=== PATIENT | female | born 1955 | race Caucasian/White ===

== ENCOUNTER 2018-08-05 07:50 | Observation (INO) | payer MEDICARE ==
[~2018-08-05] VITALS: Ht 162.6 cm; Wt 58.7 kg
[2018-08-05 08:38] LABS: BASOPHILS % 0.5 % (0.0-1.0); EOSINOPHILS # (AUTO) 0.3 (0.0-0.4); EOSINOPHILS % 3.2 % (0.0-6.0); HEMATOCRIT 38.9 % (34.2-44.1); HEMOGLOBIN 13.1 g/dL (12.0-16.0); LYMPHOCYTES # (AUTO) 1.5 (1.0-3.2); LYMPHOCYTES % 18.5 % (18.0-39.1); MEAN CORPUSCULAR HEMOGLOBIN 33.6 pg (28-32); MEAN CORPUSCULAR HGB CONC 33.7 g/dL (31-35); MEAN CORPUSCULAR VOLUME 99.7 fL (81-99); MONOCYTES # (AUTO) 0.6 (0.2-0.8); MONOCYTES % 7.5 % (4.4-11.3); NEUTROPHILS # (AUTO) 5.6 (2.1-6.9); NEUTROPHILS % 70.1 % (38.7-80.0); PLATELET COUNT 210 x10e3/uL (140-360); RED CELL DISTRIBUTION WIDTH 12.3 % (11.7-14.4)
[2018-08-05 08:55] LABS: INR 0.88; PROTHROMBIN TIME 12.8 seconds (11.9-14.5)
[2018-08-05 08:56] LABS: PARTIAL THROMBOPLASTIN TIME 25.5 seconds (23.8-35.5)
[2018-08-05] MEDS ORDERED: MIDAZOLAM HCL 2 MG/2 ML VIAL ONE (09:11)
[2018-08-05] MEDS ORDERED: FENTANYL CITRATE/PF 100MCG/2 ML INJ ONE ×2 (09:11→14:44)
[2018-08-05] MEDS ORDERED: LIDOCAINE HCL 1% LOCAL INJ 20 ML VIAL ONE ×2 (09:39→14:23)
--- NOTE | 2018-08-05 12:41 | Diagnostic Imaging Report ---
EXAMINATION: CHEST XRAY POST PROCEDURE INDICATION: Post lung biopsy COMPARISON: CT guided lung biopsy 08/05/2018. FINDINGS: TUBES and LINES: None. LUNGS AND PLEURA: Opacity in the left upper lung corresponding to known lung nodule and perilesional hemorrhage seen on same day CT. Emphysematous changes of the lungs. There is a small to moderate left sided pneumothorax measuring up to 1.3 cm. No evidence of mediastinal shift. Right sided skin fold. No evidence of pneumonia or pulmonary edema. HEART AND MEDIASTINUM: The cardiomediastinal silhouette is unremarkable. BONES AND SOFT TISSUES: No acute osseous lesion. Soft tissues are unremarkable. UPPER ABDOMEN: No free air under the diaphragm. IMPRESSION: Emphysematous changes of the lungs with opacity in the left upper lung corresponding to lung nodule and perilesional hemorrhage seen on same day chest CT. A 1.3 cm left sided pneumothorax. No evidence of mediastinal shift. Signed by: Dr. Lyudmila Tapia MD on 08/05/2018 12:38 PM
--- NOTE | 2018-08-05 14:00 | Diagnostic Imaging Report ---
EXAMINATION: CHEST XRAY POST PROCEDURE INDICATION: Post lung biopsy COMPARISON: CT guided lung biopsy 08/05/2018 and chest radiograph post procedurally 08/05/18 at 1219 PM. FINDINGS: TUBES and LINES: None. LUNGS AND PLEURA: Opacity in the left upper lung corresponding to known lung nodule and perilesional hemorrhage seen on same day CT. Emphysematous changes of the lungs. There is an enlarging moderate left sided pneumothorax measuring up to 2.1 cm, previously 1.3 cm. No evidence of mediastinal shift. Right sided skin fold. No evidence of pneumonia or pulmonary edema. HEART AND MEDIASTINUM: The cardiomediastinal silhouette is unremarkable. BONES AND SOFT TISSUES: No acute osseous lesion. Soft tissues are unremarkable. UPPER ABDOMEN: No free air under the diaphragm. IMPRESSION: Emphysematous changes of the lungs with opacity in the left upper lung corresponding to lung nodule and perilesional hemorrhage seen on same day chest CT. Enlarging 2.1 cm left sided pneumothorax. No evidence of mediastinal shift. Signed by: Dr. Lyudmila Tapia MD on 08/05/2018 1:57 PM
--- NOTE | 2018-08-05 14:23 | Diagnostic Imaging Report ---
CT Guided Left Upper Lobe Pulmonary Nodule Biopsy Consent: The nature of the procedure, including its risks, benefits and alternatives was explained to the patient who understood and gave consent. Of note, given the patient's bullous emphysema and requirement of oxygen at baseline, risk for pneumothorax was very high (estimated at greater than 90 percent) with potential need for chest tube, admission, and possible intubation. The risks, benefits, and alternatives were explained to the patient and family. The patient decided to proceed with the procedure. Respiratory staff is present as standby and Dr. Karimi is aware that the patient may need to be admitted post procedurally. Operators: Lyudmila Tapia MD ANESTHESIA: Intravenous conscious sedation was administered by radiology nursing. Continuous hemodynamic and respiratory monitoring was performed, including the use of pulse oximetry. Sedation start time: 1010AM; Sedation end time: 1045AM Total sedation time: 35 minutes Medications: 10 cc of 1% subcutaneous lidocaine Fentanyl and Versed per nursing administration records TECHNIQUE: The patient was placed in the supine position. Scans were obtained through the upper lung which demonstrated a left upper lobe pulmonary nodule and severe bullous emphysematous changes of the lungs. A clear path to the lesion was identified. The skin of the left anterior chest was marked, prepped, draped and anesthetized with 1% lidocaine. With CT guidance, a 19-gauge needle was inserted percutaneously into the left upper lobe nodule with a single pleural puncture. Due to risk for pneumothorax, no fine needle aspirates were obtained. Subsequently with a 20-gauge core biopsy device, four core biopsies were obtained with CT guidance. Samples were provided to Pathology who confirmed sample adequacy. Repeat CT demonstrated a left perilesional hemorrhage without visible pneumothorax. The patient's oxygen saturations were stable. A blood patch was performed and the introducer needle was removed. Sterile bandage was placed and the patient was immediately positioned in prone position on the stretcher for post procedural recovery. CONDITION/COMPLICATIONS: Moderate perilesional left upper lobe pulmonary hemorrhage. Patient is clinically stable and oxygenating well. No visible pneumothorax. IMPRESSION: Core biopsy of left upper lobe pulmonary nodule. Moderate perilesional hemorrhage with clinical stability at the termination of the procedure. Patient of note is at very high risk for pneumothorax, and will be monitored in prone position x 4 hours with follow-up chest radiographs. Signed by: Dr. Lyudmila Tapia MD on 08/05/2018 2:20 PM
--- OUTSIDE RECORDS SUMMARY | 2018-08-05 15:59 | XMS REPORT ---
[facility] Address [facility] Phone Unavailable Care Team Providers Care Analog Ic Design Engineer Name Role Phone IOANA KARIMI Unavailable Unavailable Problems This patient has no known problems. Allergies, Adverse Reactions, Alerts This patient has no known allergies or adverse reactions. Medications This patient has no known medications. Results Test Description Test Time Test Comments Text Results Atomic Results Result Comments CHEST XRAY POST PROCEDURE 2018-08-05 13:50:00 [place] [address] Patient Name: REVA WOODARD MR #: [id number] : 1955 Age/Sex: 63/F Req #: [id number] Adm Physician: Ordered by: KELLEY TAPIA MD Report #: [id number] Location: CT Room/Bed: Procedure: [id number] DX/CHEST XRAY POST PROCEDURE Exam Date: Exam Time: REPORT STATUS: Signed EXAMINATION: CHEST XRAY POST PROCEDURE INDICATION: Post lung biopsy COMPARISON: CT guided lung biopsy 08/05/2018 and chest radiograph post procedurally 08/05/18 at 1219 PM. FINDINGS: TUBES and LINES: None. LUNGS AND PLEURA: Opacity in the left upper lung corresponding to known lung nodule and perilesional hemorrhage seen on same day CT. Emphysematous changes of the lungs. There is an enlarging moderate left sided pneumothorax measuring up to 2.1 cm, previously 1.3 cm. No evidence of mediastinal shift. Right sided skin fold. No evidence of pneumonia or pulmonary edema. HEART AND MEDIASTINUM: The cardiomediastinal silhouette is unremarkable. BONES AND SOFT TISSUES: No acute osseous lesion. Soft tissues are unremarkable. UPPER ABDOMEN: No free air under the diaphragm. IMPRESSION: Emphysematous changes of the lungs with opacity in the left upper lung corresponding to lung nodule and perilesional hemorrhage seen on same day chest CT. Enlarging 2.1 cm left sided pneumothorax. No evidence of mediastinal shift. Signed by: Dr. Kelley Tapia MD on 08/05/2018 1:57 PM Dictated By: KELLEY TAPIA MD [id number] Transcribed By: TJ on 08/05/18 [id number] COPY TO: KELLEY TAPIA MD CHEST XRAY POST PROCEDURE 2018-08-05 12:34:00 [place] [address] Patient Name: REVA WOODARD MR #: [id number] : 1955 Age/Sex: 63/F Req #: [id number] Adm Physician: Ordered by: KELLEY TAPIA MD Report #: [id number] Location: CT Room/Bed: Procedure: [id number] DX/CHEST XRAY POST PROCEDURE Exam Date: Exam Time: REPORT STATUS: Signed EXAMINATION: CHEST XRAY POST PROCEDURE INDICATION: Post lung biopsy COMPARISON: CT guided lung biopsy 08/05/2018. FINDINGS: TUBES and LINES: None. LUNGS AND PLEURA: Opacity in the left upper lung corresponding to known lung nodule and perilesional hemorrhage seen on same day CT. Emphysematous changes of the lungs. There is a small to moderate left sided pneumothorax measuring up to 1.3 cm. No evidence of mediastinal shift. Right sided skin fold. No evidence of pneumonia or pulmonary edema. HEART AND MEDIASTINUM: The cardiomediastinal silhouette is unremarkable. BONES AND SOFT TISSUES: No acute osseous lesion. Soft tissues are unremarkable. UPPER ABDOMEN: No free air under the diaphragm. IMPRESSION: Emphysematous changes of the lungs with opacity in the left upper lung corresponding to lung nodule and perilesional hemorrhage seen on same day chest CT. A 1.3 cm left sided pneumothorax. No evidence of mediastinal shift. Signed by: Dr. Kelley Tapia MD on 08/05/2018 12:38 PM Dictated By: KELLEY TAPIA MD 1238 Transcribed By: TJ on 08/05/18 1238 COPY TO: KELLEY TAPIA MD MOD SEDATE ADD 15 MIN<5YRS 2018-08-05 11:34:00 [place] [address] Patient Name: REVA WOODARD MR #: [id number] : 1955 Age/Sex: 63/F Req #: [id number] Adm Physician: Ordered by: IOANA KARIMI MD Report #: [id number] Location: CT Room/Bed: Procedure: [id number] CT/MOD SEDATE ADD 15 MIN<5YRS Exam Date: 08/05/18 Exam Time: 1026 REPORT STATUS: Signed CT Guided Left Upper Lobe Pulmonary Nodule Biopsy Consent: The nature of the procedure, including its risks, benefits and alternatives was explained to the patient who understood and gave consent. Of note, given the patient's bullous emphysema and requirement of oxygen at baseline, risk for pneumothorax was very high (estimated at greater than 90 percent) with potential need for chest tube, admission, and possible intubation. The risks, benefits, and alternatives were explained to the patient and family. The patient decided to proceed with the procedure. Respiratory staff is present as standby and Dr. Karimi is aware that the patient may need to be admitted post procedurally. Operators: Kelley Tapia MD ANESTHESIA: Intravenous conscious sedation was administered by radiology nursing. Continuous hemodynamic and respiratory monitoring was performed, including the use of pulse oximetry. Sedation start time: 1010AM; Sedation end time: 1045AM Total sedation time: 35 minutes Medications: 10 cc of 1% subcutaneous lidocaine Fentanyl and Versed per nursing administration records TECHNIQUE: The patient was placed in the supine position. Scans were obtained through the upper lung which demonstrated a left upper lobe pulmonary nodule and severe bullous emphysematous changes of the lungs. A clear path to the lesion was identified. The skin of the left anterior chest was marked, prepped, draped and anesthetized with 1% lidocaine. With CT guidance, a 19- gauge needle was inserted percutaneously into the left upper lobe nodule with a single pleural puncture. Due to risk for pneumothorax, no fine needle aspirates were obtained. Subsequently with a 20-gauge core biopsy device, four core biopsies were obtained with CT guidance. Samples were provided to Pathology who confirmed sample adequacy. Repeat CT demonstrated a left perilesional hemorrhage without visible pneumothorax. The patient's oxygen saturations were stable. A blood patch was performed and the introducer needle was removed. Sterile bandage was placed and the patient was immediately positioned in prone position on the stretcher for post procedural recovery. CONDITION/COMPLICATIONS: Moderate perilesional left upper lobe pulmonary hemorrhage. Patient is clinically stable and oxygenating well. No visible pneumothorax. IMPRESSION: Core biopsy of left upper lobe pulmonary nodule. Moderate perilesional hemorrhage with clinical stability at the termination of the procedure. Patient of note is at very high risk for pneumothorax, and will be monitored in prone position x 4 hours with follow-up chest radiographs. Signed by: Dr. Kelley Tapia MD on 08/05/2018 2:20 PM Dictated By: KELLEY TAPIA MD 1420 Transcribed By: TJ on 08/05/18 1420 COPY TO: IOANA KARIMI MD, MD SEDATE INITIAL > 5 YRS 2018-08-05 11:34:00 [facility] [address] [place] [address] Patient Name: REVA WOODARD MR #: [id number] : 1955 Age/Sex: 63/F Req #: [id number] Adm Physician: Ordered by: IOANA KARIMI MD Report #: [id number] Location: CT Room/Bed: Procedure: [id number] CT/ SEDATE INITIAL > 5 YRS Exam Date: 08/05/18 Exam Time: 1010 REPORT STATUS: Signed CT Guided Left Upper Lobe Pulmonary Nodule Biopsy Consent: The nature of the procedure, including its risks, benefits and alternatives was explained to the patient who understood and gave consent. Of note, given the patient's bullous emphysema and requirement of oxygen at baseline, risk for pneumothorax was very high (estimated at greater than 90 percent) with potential need for chest tube, admission, and possible intubation. The risks, benefits, and alternatives were explained to the patient and family. The patient decided to proceed with the procedure. Respiratory staff is present as standby and Dr. Karimi is aware that the patient may need to be admitted post procedurally. Operators: Kelley Tapia MD ANESTHESIA: Intravenous conscious sedation was administered by radiology nursing. Continuous hemodynamic and respiratory monitoring was performed, including the use of pulse oximetry. Sedation start time: 1010AM; Sedation end time: 1045AM Total sedation time: 35 minutes Medications: 10 cc of 1% subcutaneous lidocaine Fentanyl and Versed per nursing administration records TECHNIQUE: The patient was placed in the supine position. Scans were obtained through the upper lung which demonstrated a left upper lobe pulmonary nodule and severe bullous emphysematous changes of the lungs. A clear path to the lesion was identified. The skin of the left anterior chest was marked, prepped, draped and anesthetized with 1% lidocaine. With CT guidance, a 19- gauge needle was inserted percutaneously into the left upper lobe nodule with a single pleural puncture. Due to risk for pneumothorax, no fine needle aspirates were obtained. Subsequently with a 20-gauge core biopsy device, four core biopsies were obtained with CT guidance. Samples were provided to Pathology who confirmed sample adequacy. Repeat CT demonstrated a left perilesional hemorrhage without visible pneumothorax. The patient's oxygen saturations were stable. A blood patch was performed and the introducer needle was removed. Sterile bandage was placed and the patient was immediately positioned in prone position on the stretcher for post procedural recovery. CONDITION/COMPLICATIONS: Moderate perilesional left upper lobe pulmonary hemorrhage. Patient is clinically stable and oxygenating well. No visible pneumothorax. IMPRESSION: Core biopsy of left upper lobe pulmonary nodule. Moderate perilesional hemorrhage with clinical stability at the termination of the procedure. Patient of note is at very high risk for pneumothorax, and will be monitored in prone position x 4 hours with follow-up chest radiographs. Signed by: Dr. Kelley Tapia MD on 08/05/2018 2:20 PM Dictated By: KELLEY TAPIA MD 1420 Transcribed By: TJ on 08/05/18 1420 COPY TO: IOANA KARIMI MD BIOPSY LUNG 2018-08-05 11:34:00 [place] [address] Patient Name: REVA WOODARD MR #: [id number] : 1955 Age/Sex: 63/F Req #: [id number] Adm Physician: Ordered by: IOANA KARIMI MD Report #: [id number] Location: CT Room/Bed: Procedure: [id number] IR/BIOPSY LUNG Exam Date: 08/05/18 Exam Time: 1000 REPORT STATUS: Signed CT Guided Left Upper Lobe Pulmonary Nodule Biopsy Consent : The nature of the procedure, including its risks, benefits and alternatives was explained to the patient who understood and gave consent. Of note, given the patient's bullous emphysema and requirement of oxygen at baseline, risk for pneumothorax was very high (estimated at greater than 90 percent) with potential need for chest tube, admission, and possible intubation. The risks, benefits, and alternatives were explained to the patient and family. The patient decided to proceed with the procedure. Respiratory staff is present as standby and Dr. Karimi is aware that the patient may need to be admitted post procedurally. Operators: Kelley Tapia MD ANESTHESIA: Intravenous conscious sedation was administered by radiology nursing. Continuous hemodynamic and respiratory monitoring was performed, including the use of pulse oximetry. Sedation start time: 1010AM; Sedation end time: 1045AM Total sedation time: 35 minutes Medications: 10 cc of 1% subcutaneous l idocaine Fentanyl and Versed per nursing administration records TECHNIQUE: The patient was placed in the supine position. Scans were obtained through the upper lung which demonstrated a left upper lobe pulmonary nodule and severe bullous emphysematous changes of the lungs. A clear path to the lesion was identified. The skin of the left anterior chest was marked, prepped, draped and anesthetized with 1% lidocaine. With CT guidance, a 19- gauge needle was inserted percutaneously into the left upper lobe nodule with a single pleural puncture. Due to risk for pneumothorax, no fine needle aspirates were obtained. Subsequently with a 20-gauge core biopsy device, four core biopsies were obtained with CT guidance. Samples were provided to Pathology who confirmed sample adequacy. Repeat CT demonstrated a left perilesional hemorrhage without visible pneumothorax. The patient's oxygen saturations were stable. A blood patch was performed and the introducer needle was removed. Sterile bandage was placed and the patient was immediately positioned in prone position on the stretcher for post procedural recovery. CONDITION/COMPLICATIONS: Moderate perilesional left upper lobe pulmonary hemorrhage. Patient is clinically stable and oxygenating well. No visible pneumothorax. IMPRESSION: Core biopsy of left upper lobe pulmonary nodule. Moderate perilesional hemorrhage with clinical stability at the termination of the procedure. Patient of note is at very high risk for pneumothorax, and will be monitored in prone position x 4 hours with follow-up chest radiographs. Signed by: Dr. Kelley Tapia MD on 08/05/2018 2:20 PM Dictated By: KELLEY TAPIA MD 142 Transcribed By: TJ on 08/05/181419 COPY TO: IOANA KARIMI MD CT GUIDED BIOPSY/ASPIR/INJ/CORA 2018-08-05 11:34:00 [place] [address] Patient Name: REVA WOODARD MR #: [id number] : 1955 Age/Sex: 63/F Req #: [id number] [facility] Physician: Ordered by: IOANA KARIMI MD Report #: [id number] Location: CT Room/Bed: Procedure: [id number] CT/CT GUIDED BIOPSY/ASPIR/INJ/CORA Exam Date: 08/05/18 Exam Time: 1000 REPORT STATUS: Signed CT Guided Left Upper Lobe Pulmonary Nodule Biopsy Consent: The nature of the procedure, including its risks, benefits and alternatives was explained to the patient who understood and gave consent. Of note, given the patient's bullous emphysema and requirement of oxygen at baseline, risk for pneumothorax was very high (estimated at greater than 90 percent) with potential need for chest tube, admission, and possible intubation. The risks, benefits, and alternatives were explained to the patient and family. The patient decided to proceed with the procedure. Respiratory staff is present as standby and Dr. Karimi is aware that the patient may need to be admitted post procedurally. Operators: Kelley Tapia MD ANESTHESIA: Intravenous conscious sedation was administered by radiology nursing. Continuous hemodynamic and respiratory monitoring was performed, including the use of pulse oximetry. Sedation start time: 1010AM; Sedation end time: 1045AM Total sedation time: 35 minutes Medications: 10 cc of 1% subcutaneous lidocaine Fentanyl and Versed per nursing administration records TECHNIQUE: The patient was placed in the supine position. Scans were obtained through the upper lung which demonstrated a left upper lobe pulmonary nodule and severe bullous emphysematous changes of the lungs. A clear path to the lesion was identified. The skin of the left anterior chest was marked, prepped, draped and anesthetized with 1% lidocaine. With CT guidance, a 19- gauge needle was inserted percutaneously into the left upper lobe nodule with a single pleural puncture. Due to risk for pneumothorax, no fine needle aspirates were obtained. Subsequently with a 20-gauge core biopsy device, four core biopsies were obtained with CT guidance. Samples were provided to Pathology who confirmed sample adequacy. Repeat CT demonstrated a left perilesional hemorrhage without visible pneumothorax. The patient's oxygen saturations were stable. A blood patch was performed and the introducer needle was removed. Sterile bandage was placed and the patient was immediately positioned in prone position on the stretcher for post procedural recovery. CONDITION/COMPLICATIONS: Moderate perilesional left upper lobe pulmonary hemorrhage. Patient is clinically stable and oxygenating well. No visible pneumothorax. IMPRESSION: Core biopsy of left upper lobe pulmonary nodul e. Moderate perilesional hemorrhage with clinical stability at the termination of the procedure. Patient of note is at very high risk for pneumothorax, and will be monitored in prone position x 4 hours with follow-up chest radiographs. Signed by: Dr. Kelley Tapia MD on 08/05/2018 2:20 PM Dictated By: KELLEY TAPIA MD 1422 Transcribed By: TJ on 08/05/18 1420 COPY TO: IOANA KARIMI MD
--- OUTSIDE RECORDS SUMMARY | 2018-08-05 15:59 | XMS REPORT | Clinical Summary ---
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 Disp. Refills Start End Date Status Date levothyroxine (SYNTHROID, Take 150 mcg by mouth Active LEVOXYL) 150 mcg tablet every morning. nitroglycerin (NITROSTAT) Place 0.4 mg under the Active 0.4 MG SL tablet tongue every 5 (five) minutes as needed for chest pain. lithium 300 MG capsule Take 300 mg by mouth 2 08/30/20 Discontin (two) times a day with 17 ued meals. ARIPiprazole (ABILIFY) 5 Take 5 mg by mouth daily. 08/30/20 Discontin MG tablet 17 ued traZODone (DESYREL) 100 Take 300 mg by mouth 08/30/20 Discontin MG tablet nightly. 17 ued desvenlafaxine (PRISTIQ) Take 150 mg by mouth 08/30/20 Discontin 100 MG 24 hr tablet daily. 17 ued cyclobenzaprine Take 20 mg by mouth 2 08/30/20 Discontin (FLEXERIL) 10 mg tablet (two) times a day as 17 ued needed for muscle spasms. HYDROcodone-acetaminophen Take 1 tablet by mouth 08/30/20 Discontin (NORCO) 10-325 mg per every 6 (six) hours as 17 ued tablet needed for moderate pain. diazePAM (VALIUM) 5 MG Take 10 mg by mouth 2 08/30/20 Discontin tablet (two) times a day as 17 ued needed for anxiety. fluticasone-salmeterol Inhale 1 puff 2 (two) 08/30/20 Discontin (ADVAIR) 500-50 mcg/dose times a day. 17 ued DISKUS ARIPiprazole (ABILIFY) 10 Take 10 mg by mouth 08/30/20 Discontin MG tablet daily. 17 ued aclidinium bromide 400 Inhale 400 mcg every 12 08/30/20 Discontin mcg/actuation aerosol (twelve) hours. 17 ued powdr breath activated clonAZEPAM (KlonoPIN) 0.5 Take 0.5 mg by mouth 2 08/30/20 Discontin MG tablet (two) times a day as 17 ued needed for seizures. ARIPiprazole (ABILIFY) 10 Take 1 tablet (10 mg 4 tablet 0 08/30/20 09/03/20 MG tablet total) by mouth daily for 17 17 4 days. clonAZEPAM (KlonoPIN) 0.5 Take 1 tablet (0.5 mg 8 tablet 0 08/30/20 09/03/20 MG tablet total) by mouth 2 (two) 17 17 times a day as needed for seizures for up to 4 days. desvenlafaxine (PRISTIQ) Take 3 tablets (150 mg 12 tablet 0 08/30/20 09/03/20 50 MG 24 hr tablet total) by mouth daily for 17 17 4 days. fluticasone-salmeterol Inhale 1 puff 2 (two) 1 each 0 08/30/20 09/29/19 (ADVAIR) 500-50 mcg/dose times a day for 30 days. 17 18 DISKUS lithium 300 MG capsule Take 1 capsule (300 mg 8 capsule 0 08/30/20 09/03/20 total) by mouth 2 (two) 17 17 times a day with meals for 4 days. aclidinium bromide 400 Inhale 1 puff every 12 1 each 0 08/30/20 09/29/19 mcg/actuation aerosol (twelve) hours for 30 17 18 powdr breath activated days. traZODone (DESYREL) 100 Take 3 tablets (300 mg 12 tablet 0 08/30/20 09/03/20 MG tablet total) by mouth nightly 17 for 4 days. Active Problems Not on file Encounters Date Type Specialty Care Team Description 05/13/2018 Hospital Radiology Barry Egan, Nonintractable episodic Encounter headache, unspecified headache type 05/05/2018 Transcribe Access Barry Egan, Nonintractable episodic Orders headache, unspecified headache type (Primary Dx) 04/12/2018 Transcribe Access Barry Egan, Facial pain (Primary Dx) Orders 02/15/2018 Hospital Radiology Norm Davies, DO Abnormal mammogram Encounter 02/15/2018 Hospital Radiology Norm Davies, DO Encounter 02/15/2018 Ancillary Radiology Norm Davies, DO Orders 02/02/2018 Transcribe Access Norm Davies, DO Abnormal mammogram Orders (Primary Dx) 10/14/2017 Transcribe Access Manfred Karmii MD Obstructive chronic Orders bronchitis without exacerbation (Primary Dx) 08/30/2017 Emergency Emergency Medicine Major Mitchell Medication refill MD Charles (Primary Dx) after 08/04/2017 Social History Tobacco Use Types Packs/Day Years Used Date Current Every Day Smoker Smokeless Tobacco: Never Used Alcohol Use Drinks/Week oz/Week Comments No Sex Assigned at Date Recorded Not on file Last Filed Vital Signs Vital Sign Reading Time Taken Blood Pressure 125/74 08/30/2017 11:58 AM [employer] Pulse 90 08/30/2017 11:58 AM [employer] Temperature 36.3 C (97.4 F) 08/30/2017 11:58 AM [employer] Respiratory Rate 18 08/30/2017 11:58 AM [employer] Oxygen Saturation 97% 08/30/2017 11:58 AM [employer] Inhaled Oxygen - - Concentration Weight - - Height 162.6 cm (5' 4") 08/30/2017 10:52 AM [employer] Body Mass Index - - Plan of Treatment Health Maintenance Due Date Last Done Comments CERVICAL CANCER SCREENING 1978 COLON CANCER SCREENING 2007 SHINGRIX VACCINE (#1) 2007 ZOSTER VACCINE 2017 INFLUENZA VACCINE 04/28/2018 BREAST CANCER SCREENING 02/16/2020 02/15/2018, 02/15/2018, 02/02/2018 Procedures Procedure Name Priority Date/Time Associated Diagnosis Comments CT HEAD WO CONTRAST Routine 05/13/2018 Nonintractable episodic Results for this 11:21 AM CDT headache, unspecified procedure are in the headache type results section. US BREAST COMPLETE LEFT Routine 02/15/2018 Abnormal mammogram Results for this 10:53 AM CDT procedure are in the results section. MAMMO EXTERNAL STUDY Routine 02/15/2018 Results for this 10:16 AM CDT procedure are in the results section. after 08/04/2017 Results * CT Head Wo Contrast (05/13/2018 11:21 AM) Narrative Performed At EXAMINATION:CT HEAD WO CONTRAST [facility] CLINICAL HISTORY:R51 Headache, R51 COMPARISON:None. TECHNIQUE: Noncontrast head CT performed using radiation dose reduction techniques.Technical factors are evaluated and adjusted to ensure appropriate moderation of exposure.Automated dose management technology is applied to adjust radiation exposure while achieving a diagnostic quality image. FINDINGS: No evidence of acute intracranial hemorrhage, mass, mass effect, midline shift, or acute infarct. Ventricles and sulci are normal in appearance for age.Minimal arteriosclerosis of the cavernous and paraclinoid internal carotid arteries. Basal cisterns are clear. Calvarium is intact. Orbits are normal in appearance. Complete opacification of the visualized left maxillary sinus with lateral deviation of the medial wall which can be seen with atelectasis. There is mild lateral deviation of the medial wall the right maxillary sinus demonstrates minimal mucosal thickening. Sequela of chronic right maxillary osteitis. Trace right mastoid tip effusion with surrounding sclerosis. Left mastoid air cells are clear. IMPRESSION: 1. No CT evidence of acute intracranial abnormality. 2. Chronic appearing sinus inflammatory changes with complete opacification of the visualized left maxillary sinus. [id number] Procedure Note Interface, Radiology Results [facility] - 05/13/2018 11:31 AM CDT EXAMINATION: CT HEAD WO CONTRAST CLINICAL HISTORY: R51 Headache, R51 COMPARISON: None. TECHNIQUE: Noncontrast head CT performed using radiation dose reduction techniques. Technical factors are evaluated and adjusted to ensure appropriate moderation of exposure. Automated dose management technology is applied to adjust radiation exposure while achieving a diagnostic quality image. FINDINGS: No evidence of acute intracranial hemorrhage, mass, mass effect, midline shift, or acute infarct. Ventricles and sulci are normal in appearance for age. Minimal arteriosclerosis of the cavernous and paraclinoid internal carotid arteries. Basal cisterns are clear. Calvarium is intact. Orbits are normal in appearance. Complete opacification of the visualized left maxillary sinus with lateral deviation of the medial wall which can be seen with atelectasis. There is mild lateral deviation of the medial wall the right maxillary sinus demonstrates minimal mucosal thickening. Sequela of chronic right maxillary osteitis. Trace right mastoid tip effusion with surrounding sclerosis. Left mastoid air cells are clear. IMPRESSION: 1. No CT evidence of acute intracranial abnormality. 2. Chronic appearing sinus inflammatory changes with complete opacification of the visualized left maxillary sinus. [id number] Performing Organization Address City/State/Zipcode Phone Number [facility] [address] [place] [address] * US Breast Complete Left (02/15/2018 10:53 AM) Narrative Performed At EXAMINATION:US BREAST COMPLETE LEFT02/15/2018 [facility] COMPARISONS:Outside institution digital screening mammogram dated 01/15/2018 performed at [facility] women's [address] [place] [address] INDICATION:62-year-old female with masses in the subareolar left breast seen on screening mammogram. History of previous benign right breast biopsy. FINDINGS: High resolution marie-scale sonography includes imaging of all four quadrants and the retroareolar tissues. This demonstrates multiple simple and complex cysts in the subareolar left breast. The largest of these measures 2.6 x 2.7 x 1.5 cm. A few ectatic ducts are also noted. No suspicious sonographic findings of the left breast at this time. IMPRESSION: No sonographic evidence of malignancy. Clinical follow-up recommended. Continued routine annual mammographic surveillance per guidelines due in December 2018. Findings and recommendations were discussed in person with the patient at the time of the exam. BI-RADS 2: BENIGN. [id number] Performing Organization Address City/State/Zipcode Phone Number [facility] [address] [place] [address] * Mammo External Study (02/15/2018 10:16 AM) Narrative Performed At This exam was not acquired at a [facility] facility and has not been [facility] interpreted by a [facility] Provider.The exam was imported into our imaging system for comparisons purposes. Performing Organization Address City/State/Zipcode Phone Number [facility] [address] [place] [address] after 08/04/2017 Insurance Payer Benefit Subscriber ID Type Phone Address Plan / Group HUMANA MEDICARE HUMANA xxxxxxxxx PPO MEDICARE PPO/PFFS/E [facility]
[2018-08-05 17:10] VITALS: BP 151/68
[2018-08-05] MEDS ORDERED: ZOLPIDEM TARTRATE 5 MG TAB PO PRN (17:15)
[2018-08-05 17:46] VITALS: BP 151/68
[2018-08-05] MEDS ORDERED: ADVAIR 250-501 EACH INH (18:24)
[2018-08-05] MEDS ORDERED: ABILIFY5 MG PO (18:24)
[2018-08-05] MEDS ORDERED: LITHIUM CARBON300 M1 PO (18:24)
[2018-08-05] MEDS ORDERED: PRISTIQ ER50 MG PO (18:24)
[2018-08-05] MEDS ORDERED: LEVOTHYROXINE100 MC1 PO (18:24)
[2018-08-05] MEDS ORDERED: TRAZODONE HCL50 MG PO (18:24)
[2018-08-05] MEDS ORDERED: TUDORZA PRESS400 MCG INH (18:24)
[2018-08-05] MEDS: HYDROCODONE/APAP 5MG-325MG TAB PO PRN ×2 (19:19→23:30)
[2018-08-05 20:00] VITALS: BP 114/67
[2018-08-05] MEDS ORDERED: LEVOTHYROXINE100 MCG PO (20:16)
[2018-08-05] MEDS ORDERED: SALMETEROL/FLUTICASONE 250/50 INH SCH (20:30)
[2018-08-05] MEDS: ACLIDINIUM BROMIDE INH SCH (20:30)
[2018-08-05] MEDS ORDERED: TRAZODONE HCL 50 MG TAB PO SCH (21:00)
[2018-08-05] MEDS ORDERED: LITHIUM CARBONATE ER 300 MG TAB PO SCH (21:00)
[2018-08-05] MEDS ORDERED: LITHIUM CARBONATE PO SCH (21:00)
[2018-08-05] MEDS: LITHIUM CARBONATE 150 MG CAPSULE PO SCH (21:17)
[2018-08-06] VITALS: BP 98/58
[2018-08-06 04:00] VITALS: BP 106/62
[2018-08-06] MEDS ORDERED: LEVOTHYROXINE SODIUM 75 MCG TAB PO SCH (06:00)
[2018-08-06] MEDS ORDERED: SALMETEROL/FLUTICASONE 250/50 INH SCH (07:00)
[2018-08-06] MEDS ORDERED: DESVENLAFAXINE SUCCINATE 50 MG TAB.SR.24H PO SCH (09:00)
[2018-08-06] MEDS ORDERED: ARIPIPRAZOLE 5 MG TABLET PO SCH (09:00)
[2018-08-06] MEDS ORDERED: ACLIDINIUM BROMIDE INH SCH (09:00)
[2018-08-06] MEDS ORDERED: NON-FORMULARY MEDICATION (Aripiprazole (Abilify) 5 MG) PO SCH (09:00)
[2018-08-06] MEDS ORDERED: LEVOTHYROXINE SODIUM 100 MCG TAB PO SCH (09:00)
[2018-08-06] MEDS: ACLIDINIUM BROMIDE INH SCH ×2 (09:00→17:00)
[2018-08-06] MEDS: LITHIUM CARBONATE 150 MG CAPSULE PO SCH ×2 (09:00→17:00)
[2018-08-06 10:06] VITALS: BP 118/70
[2018-08-06] MEDS ORDERED: LORAZEPAM INJ 2 MG/ML VIAL IV PRN (10:30)
[2018-08-06] MEDS: HYDROCODONE/APAP 5MG-325MG TAB PO PRN (10:44)
[2018-08-06] MEDS ORDERED: LORAZEPAM 0.5 MG TAB PO PRN (10:45)
--- NOTE | 2018-08-06 11:16 | Diagnostic Imaging Report ---
PROCEDURE: Frontal and lateral views of the chest. COMPARISON: Patients [facility], CT, CT GUIDED BIOPSY/ASPIR/INJ/CORA, 08/05/2018, 10:02. INDICATIONS: PNEUMOTHORAX FINDINGS: Lines/tubes: Left apical pigtail chest tube present. Lungs: Emphysematous changes. Left upper lobe nodular opacity partially obscured by the pigtail catheter. Pleura: No evidence of a pneumothorax. Heart and mediastinum: The heart and the mediastinum are normal. Bones: No acute bony abnormality. IMPRESSION: Resolution of the left-sided pneumothorax. Dylan Recio D.O. Dictated by: Dylan Recio D.O. on 08/06/2018 at 11:25 Electronically approved by: Dylan Recio D.O. on 08/06/2018 at 11:25
[2018-08-06] MEDS ORDERED: NICOTINE 14 MG/EA PATCH TOP SCH (11:30)
[2018-08-06 11:51] VITALS: BP 118/70
[2018-08-06 14:54] VITALS: BP 118/80
[2018-08-06 16:15] VITALS: BP 120/72
[2018-08-07] MEDS ORDERED: NICOTINE 14 MG/EA PATCH TOP SCH (09:00)
--- NOTE | 2018-08-07 18:11 | Diagnostic Imaging Report ---
CT Guided Left Chest Tube Placement Comparison: Chest radiographs 08/05/[address] guided lung biopsy 08/05/18. Consent: The nature of the procedure, including its risks, benefits and alternatives was explained to the patient who understood and gave consent. Operators: Lyudmila Tapia MD ANESTHESIA: Intravenous conscious sedation was administered by radiology nursing. Continuous hemodynamic and respiratory monitoring was performed, including the use of pulse oximetry. Medications: 10 cc of 1% subcutaneous lidocaine Fentanyl per nursing administration records TECHNIQUE/FINDINGS: The patient was placed in the supine position. Scans were obtained through the left lung which demonstrated a large left pneumothorax, left upper lobe pulmonary nodule and severe bullous emphysematous changes of the lungs. A clear path to the pneumothorax via an anterior approach was identified. The skin of the left anterior chest was marked, prepped, draped and anesthetized with 1% lidocaine. With CT guidance, an 18 gauge needle was inserted percutaneously into the left pleural space. Subsequently, an .35'' Amplatz wire was placed. Then with CT guidance, an 8 Fr Scott-Duffy pigtail catheter was placed into the left upper pleural space. The catheter was connected to wall suction and the pneumothorax was aspirated. The patient's oxygen saturation was noted to have improved and tachycardia resolved. Repeat CT demonstrated substantial improvement of the pneumothorax with a moderate residual pneumothorax at the lung base. The catheter was secured with two sutures and a sterile dressing was placed. No evidence of immediate complication. The patient was transported to the floor in stable condition. IMPRESSION: CT guided left sided chest tube placement for large pneumothorax. Post procedural CT demonstrating substantial improvement of pneumothorax. Signed by: Dr. Lyudmila Tapia MD on 08/07/2018 6:07 PM
== END 2018-08-06 18:36 | disposition home or self-care (01) ==
LOC: CT 07:50 → INTOOBSV 15:00 → RAD HOLD 15:00 → MED/SURG 16:49
PROVIDERS: ADMIT Internal Medicine Critical Care Medicine; ATTEND Internal Medicine Critical Care Medicine
DX: J95.811 Postprocedural pneumothorax (principal); C34.12 Malignant neoplasm of upper lobe, left bronchus or lung; J44.9 Chronic obstructive pulmonary disease, unspecified; Y84.8 Other medical procedures as the cause of abnormal reaction of the patient, or of later complication, without mention of misadventure at the time of the procedure; Y92.238 Other place in hospital as the place of occurrence of the external cause
CPT/HCPCS: 32405; 32557; 36415 ×2; 71045; 71046; 82948; 85025; 85610; 85730; 88173; 88305; 88342; C1769; G0378 ×2; J2001; J2250; 77012; 88112; 88172; 99152; 99153